=== PATIENT | female | born 1995 | race Caucasian/White ===

== ENCOUNTER 2017-03-30 10:56 | Emergency (ER) | payer BC, MEDICAID ==
[~2017-03-30 10:56] MED LIST: ALBU6.7H IH; [UNRECOGNIZED DRUG - OTHER] PO
[2017-03-30 11:48] LABS: APPEARANCE,URINE Clear (CLEAR); BILIRUBIN,URINE Negative (NEGATIVE); COLOR,URINE Yellow (YELLOW); GLUCOSE, URINE (UA) Negative (NEGATIVE); KETONES,URINE Negative (NEGATIVE); LEUKOCYTE ESTERASE ,URINE Trace (NEGATIVE); NITRATE,URINE Negative (NEGATIVE); OCCULT BLOOD,URINE Moderate (NEGATIVE); PH,URINE 7.5 (5.0-8.0); PROTEIN,URINE Negative (NEGATIVE); UROBILINOGEN,URINE 0.2 mg/dL (0.2-1.0)
[2017-03-30 12:00] LABS: BASOPHILS % (AUTO) 0.4 % (0.0-5.0); EOSINOPHILS % (AUTO) 1.2 % (0.0-8.0); HEMATOCRIT 40.1 % (36-48); MEAN CORPUSCULAR HEMOGLOBIN 29.3 pg (27.0-33.0); MEAN CORPUSCULAR HGB CONC 33.4 g/dL (32.0-36.0); MEAN CORPUSCULAR VOLUME 87.5 fL (79-99); MONOCYTES % (AUTO) 5.6 % (3.0-13.0); NEUTROPHILS % (AUTO) 72.8 % (40.0-77.0); PLATELET COUNT (AUTO) 246 K/uL (130-400); RED BLOOD CELL COUNT(AUTO) 4.58 MIL/uL (4.00-5.50); RED CELL DISTRIBUTION WIDTH 13.5 % (11.0-15.5); WHITE BLOOD COUNT (AUTO) 7.5 K/uL (4.8-10.8)
[2017-03-30 12:08] LABS: BACTERIA,URINE Few /HPF (None Seen); WBC,URINE 0-1 /HPF (0-1)
[2017-03-30 12:09] LABS: CREATININE 0.7 mg/dL (0.5-1.5); POTASSIUM 3.9 mmol/L (3.5-5.1)
[2017-03-30 12:09] LABS: RBC,URINE 0-1 /HPF (0-1); SQUAMOUS EPITHELIAL CELL,UR Few /LPF (0-2)
[2017-04-02 21:08] LABS: CHLAMYDIA DNA N.A.AMPLIFY Negative (Negative)
== END 2017-03-30 13:52 | disposition home or self-care (01) ==
LOC: EDH 10:56
DX: O20.0 Threatened abortion (principal); J45.909 Unspecified asthma, uncomplicated; Z3A.01 Less than 8 weeks gestation of pregnancy
CPT/HCPCS: 36415; 76817; 80048; 81001; 84702; 85025; 86900; 86901; 87210; 87486; 87797

== ENCOUNTER 2017-09-17 20:05 | Emergency (ER) | payer MEDICAID ==
[2017-09-17 20:36] LABS: APPEARANCE,URINE Clear (CLEAR); BILIRUBIN,URINE Negative (NEGATIVE); COLOR,URINE Yellow (YELLOW); GLUCOSE, URINE (UA) Negative (NEGATIVE); KETONES,URINE Negative (NEGATIVE); LEUKOCYTE ESTERASE ,URINE Negative (NEGATIVE); NITRATE,URINE Negative (NEGATIVE); OCCULT BLOOD,URINE Negative (NEGATIVE); PROTEIN,URINE Negative (NEGATIVE); UROBILINOGEN,URINE 0.2 mg/dL (0.2-1.0)
[2017-09-17 20:37] LABS: BASOPHILS % (AUTO) 0.3 % (0.0-5.0); EOSINOPHILS % (AUTO) 1.8 % (0.0-8.0); HEMATOCRIT 33.9 % (36-48); LYMPHOCYTES % (AUTO) 24.6 % (21.0-51.0); MEAN CORPUSCULAR HEMOGLOBIN 30.6 pg (27.0-33.0); MEAN CORPUSCULAR HGB CONC 35.3 g/dL (32.0-36.0); MEAN CORPUSCULAR VOLUME 86.8 fL (79-99); MONOCYTES % (AUTO) 7.3 % (3.0-13.0); PLATELET COUNT (AUTO) 210 K/uL (130-400); RED CELL DISTRIBUTION WIDTH 14.5 % (11.0-15.5); WHITE BLOOD COUNT (AUTO) 10.8 K/uL (4.8-10.8)
[2017-09-17 20:46] LABS: CREATININE 0.6 mg/dL (0.5-1.5); POTASSIUM 4.1 mmol/L (3.5-5.1)
== END 2017-09-17 21:23 | disposition home or self-care (01) ==
LOC: EDH 20:05
DX: O26.891 Other specified pregnancy related conditions, first trimester (principal); R10.31 Right lower quadrant pain; R10.32 Left lower quadrant pain; R50.9 Fever, unspecified; J45.909 Unspecified asthma, uncomplicated; Z87.891 Personal history of nicotine dependence; Z3A.09 9 weeks gestation of pregnancy
CPT/HCPCS: 36415; 76801; 80048; 81003; 84702; 85025

== ENCOUNTER 2018-04-10 04:25 | Inpatient (IN) | payer MEDICAID | END 2018-04-11 15:15 | disposition home or self-care (01) | LOC: EDH 04:25 → LDH 04:26 → WSH 15:19 | PROC: 10E0XZZ Delivery of Products of Conception, External Approach (ICD-10-PCS; principal; ~2018-04-10) | DX: O80 Encounter for full-term uncomplicated delivery (principal); Z37.0 Single live birth; Z3A.38 38 weeks gestation of pregnancy ==

== ENCOUNTER 2022-03-06 16:48 | Emergency (ER) | payer BC, MEDICAID, OTHER ==
[~2022-03-06] VITALS: Ht 162.6 cm; Wt 59.0 kg
[~2022-03-06 16:48] MED LIST changes: -ALBU6.7H IH; +ALBU6.7H14 IH; +FERR-82 PO; +PNV#1COM14 PO; -[UNRECOGNIZED DRUG - OTHER] PO
[2022-03-06 20:16] LABS: APPEARANCE,URINE CLEAR (CLEAR); BILIRUBIN,URINE NEGATIVE (NEGATIVE); COLOR,URINE YELLOW (YELLOW); GLUCOSE, URINE (UA) NEGATIVE (NEGATIVE); KETONES,URINE 10 mg/dL (NEGATIVE); LEUKOCYTE ESTERASE ,URINE NEGATIVE Leu/uL (NEGATIVE); NITRATE,URINE NEGATIVE (NEGATIVE); OCCULT BLOOD,URINE SMALL (NEGATIVE); PROTEIN,URINE 10 mg/dL (NEGATIVE); UROBILINOGEN,URINE 0.2 mg/dL (0.2-1.0)
[2022-03-06 20:19] LABS: HCG,QUALITATIVE URINE NEGATIVE (NEGATIVE)
[2022-03-06 20:37] LABS: BACTERIA,URINE FEW /HPF (None Seen); MUCUS,URINE MANY LPF (None Seen); RBC,URINE 0-1 /HPF (0-1); SQUAMOUS EPITHELIAL CELL,UR FEW /HPF (0-2)
[2022-03-06] MEDS ORDERED: BACI1CAP6 PO (21:08)
[2022-03-06] MEDS ORDERED: IBUP-2070 PO (21:08)
[2022-03-06] MEDS ORDERED: ONDA4TAB10 PO (21:08)
[2022-03-06] MEDS ORDERED: ONDANSETRON ODT 4MG TAB SL ONE (21:30)
[2022-03-06 22:00] VITALS: BP 129/71
== END 2022-03-06 22:10 | disposition home or self-care (01) ==
LOC: EDH 16:48
DX: S09.90XA Unspecified injury of head, initial encounter (principal); R11.2 Nausea with vomiting, unspecified; J45.909 Unspecified asthma, uncomplicated; W18.39XA Other fall on same level, initial encounter; Y93.89 Activity, other specified; Y92.89 Other specified places as the place of occurrence of the external cause; Y99.8 Other external cause status
CPT/HCPCS: 70450; 72125; 81001; 81025

== ENCOUNTER 2023-07-25 14:41 | Emergency (ER) | payer BC, OTHER ==
[~2023-07-25] VITALS: Ht 157.5 cm; Wt 70.8 kg
[~2023-07-25 14:41] MED LIST changes: +BACI1CAP6 PO; +IBUP-2070 PO; +ONDA4TAB10 PO
[2023-07-25 14:48] VITALS: BP 116/55; PULSE 82; RESP 18; O2SAT 98
[2023-07-25] MEDS ORDERED: METO-296 PO (15:48)
== END 2023-07-25 16:04 | disposition home or self-care (01) ==
LOC: EDH 14:41
DX: F41.9 Anxiety disorder, unspecified (principal); J45.909 Unspecified asthma, uncomplicated; Z79.899 Other long term (current) drug therapy

== ENCOUNTER 2023-08-03 19:25 | Emergency (ER) | payer OTHER ==
[~2023-08-03] VITALS: Ht 157.5 cm; Wt 68.5 kg
[~2023-08-03 19:25] MED LIST changes: +METO-296 PO
[2023-08-03] MEDS: HYDROXYZINE 50MG VIAL 50 MG/ML VIAL IM STA (19:56)
[2023-08-03 20:37] VITALS: BP 124/66; PULSE 88; RESP 18; O2SAT 100
== END 2023-08-03 20:47 | disposition home or self-care (01) ==
LOC: EDH 19:25
DX: F41.9 Anxiety disorder, unspecified (principal); F32.A Depression, unspecified; J45.909 Unspecified asthma, uncomplicated; Z79.899 Other long term (current) drug therapy; Z98.890 Other specified postprocedural states
CPT/HCPCS: 99283; 96372; J3410

== ENCOUNTER 2023-08-12 21:35 | Emergency (ER) | payer OTHER ==
[~2023-08-12] VITALS: Ht 160 cm; Wt 67.1 kg
[2023-08-12] MEDS: HYDROXYZINE 25 MG TABLET PO ONE (23:12)
[2023-08-12 23:18] VITALS: BP 124/78; PULSE 68; RESP 18; O2SAT 98
== END 2023-08-12 23:22 | disposition home or self-care (01) ==
LOC: EDH 21:35
DX: F41.9 Anxiety disorder, unspecified (principal); J45.909 Unspecified asthma, uncomplicated; Z79.899 Other long term (current) drug therapy; Z98.890 Other specified postprocedural states
CPT/HCPCS: 93005